=== PATIENT | male | born 1940 | race Caucasian/White ===

== ENCOUNTER → 2016-10-02 | Outpatient (CLI) | payer MEDICARE | END | disposition home or self-care (01) | LOC: RADPV 11:48 | PROVIDERS: ATTEND Legal Medicine | DX: I50.9 Heart failure, unspecified (principal); I51.7 Cardiomegaly; I70.0 Atherosclerosis of aorta; J98.11 Atelectasis; J90 Pleural effusion, not elsewhere classified; Z95.1 Presence of aortocoronary bypass graft; Z95.810 Presence of automatic (implantable) cardiac defibrillator | CPT/HCPCS: 71020 ==